=== PATIENT | male | born 1960 | race Caucasian/White ===

== ENCOUNTER 2022-09-20 11:36 | Emergency (ER) | payer SELFPAY ==
[2022-09-20] MEDS ORDERED: Ketorolac 30 MG/ML SDV IM ONE (12:00)
[2022-09-20] MEDS ORDERED: Lidocaine 4% 1 each Patch TOP SCH (12:00)
[2022-09-20 19:27] VITALS: BP 119/71; PULSE 74
== END 2022-09-20 13:16 | disposition home or self-care (01) ==
LOC: MW.ED 11:36
DX: S43.421A Sprain of right rotator cuff capsule, initial encounter (principal); Z79.899 Other long term (current) drug therapy; X58.XXXA Exposure to other specified factors, initial encounter
CPT/HCPCS: 73030; 99283; A9270